=== PATIENT | male | born 2000 | race Caucasian/White ===

== ENCOUNTER 2021-06-23 20:18 | Emergency (ER) | payer OTHER ==
[~2021-06-23] VITALS: Ht 167.6 cm; Wt 77.3 kg
[2021-06-23 20:31] VITALS: BP 151/74; PULSE 90; TEMP 98.2
== END 2021-06-23 21:28 | disposition home or self-care (01) ==
LOC: COL.ER 20:18
DX: S61.216A Laceration without foreign body of right little finger without damage to nail, initial encounter (principal); W26.0XXA Contact with knife, initial encounter; Y92.090 Kitchen in other non-institutional residence as the place of occurrence of the external cause